=== PATIENT | male | born 1975 | race Caucasian/White ===

== ENCOUNTER 2022-06-04 17:48 | Observation (INO) ==
[2022-06-04] MEDS ORDERED: Naloxone 0.4 MG/ML INJ IVP PRN (20:28)
[2022-06-04] MEDS ORDERED: Acetaminophen 325 MG TABLET PO PRN (21:00)
[2022-06-04] MEDS ORDERED: Ondansetron 4 MG/2 ML VIAL IVP PRN (21:00)
[2022-06-04] MEDS ORDERED: GuaiFENesin Liq 200 MG/10 ML UDC PO PRN (22:07)
[2022-06-05] MEDS: Magic Mouthwash 10 ML UD Cup PO SCH ×4 (00:01→17:04)
[2022-06-05 01:26] LABS: Basophils % 0.1 %; Eosinophils % 0.1 %; Hematocrit 31.7 % (37.5-50.1); Hemoglobin 10.3 g/dL (12.9-16.9); Immature Granulocytes % 0.4 % (0-4); Lymphocytes # 0.8 K/mcL (0.6-4.6); Lymphocytes % 6.4 %; Mean Corpuscular HGB Conc 32.5 g/dL (31.6-35.5); Mean Corpuscular Hemoglobin 30.9 pg (28.0-33.3); Mean Corpuscular Volume 95.2 fL (83.0-100.0); Mean Platelet Volume 9.8 fL (9.4-12.4); Monocytes # 0.7 K/mcL (0.0-1.3); Monocytes % 5.5 %; Neutrophils # 10.5 K/mcL (1.6-8.9); Platelet Count 246 K/mcL (140-400); Red Blood Count 3.33 M/mcL (4.19-5.50); Red Cell Distribution Width 15.2 % (11.5-14.5); Segmented Neutrophils % 87.5 %
[2022-06-05 01:36] LABS: INR 1.1; Prothrombin Time 11.9 Seconds (9.4-12.1)
[2022-06-05 01:45] LABS: Albumin 3.5 g/dL (3.5-5.7); Albumin/Globulin Ratio 1.3 (1.1-2.2); Bilirubin,Direct 0.1 mg/dL (0.0-0.2); Bilirubin,Indirect 0.3 mg/dL (0.0-1.0); Bilirubin,Total 0.4 mg/dL (0.3-1.0); Calcium 9.1 mg/dL (8.6-10.3); Chol/HDL Ratio 3.6 (0-4.9); Globulin 2.7 g/dL (2.4-3.5); Magnesium 1.7 mg/dL (1.6-2.6); Phosphorous 3.2 mg/dL (2.7-4.5); Potassium 4.7 mEq/L (3.5-5.1); Total Protein 6.2 g/dL (6.4-8.9); Troponin I 0.03 ng/mL (< 0.04)
[2022-06-05 01:58] LABS: Thyroid Stimulating Hormone 0.406 mcIU/mL (0.340-5.600)
[2022-06-05] MEDS ORDERED: Azithromycin 500 MG in 0.9 % Sodium Chloride 250 ML IVPB SCH (09:00)
[2022-06-05] MEDS ORDERED: carvediloL 6.25 MG TABLET PO SCH ×2 (09:00→12:35)
[2022-06-05] MEDS: Aspirin 81 MG TAB.CHEW PO SCH (09:15)
[2022-06-05] MEDS: Furosemide 40 MG/4 ML VIAL IVP SCH ×2 (09:16→21:16)
[2022-06-05] MEDS: *HR* Enoxaparin 40 MG/0.4 ML SYRINGE SQ SCH (09:17)
[2022-06-05 10:16] LABS: Bilirubin,Urine Negative (Negative); Blood,Urine Negative (Negative); Clarity,Urine Clear (Clear); Color,Urine Light-Yellow (Yellow); Glucose,Urine (UA) Normal (Normal); Ketones,Urine Negative (Negative); Leukocyte Esterase,Urine Negative (Negative); Nitrite,Urine Negative (Negative); PH,Urine 7.5 pH Units (5.0-8.0); Protein,Urine Trace mg/dL (Neg-Trace); Specific Gravity,Urine 1.018 (1.010-1.025); Urobilinogen,Urine Normal (Normal)
[2022-06-05 10:24] LABS: ABG Base Excess 2 mEq/L (-2 to 3); ABG HCO3 25 mEq/L (21-27); ABG Oxygen Saturation 93 % (95-98); ABG PCO2 35 mmHg (35-45); ABG PH 7.47 pH Units (7.32-7.45); ABG PO2 63 mmHg (85-104); ABG TCO2 26 mEq/L (20-26)
[2022-06-05] MEDS: ALPRAZolam 0.5 MG TABLET PO PRN (10:30)
[2022-06-05] MEDS ORDERED: carvediloL 6.25 MG TABLET PO ONE (12:37)
[2022-06-05] MEDS ORDERED: Magnesium Sulfate 1 GM/102 ML PIGGYBACK IVPB ONE (13:22)
[2022-06-05 15:46] LABS: Lactate Dehydrogenase 224 Units/L (140-271); Total Protein 6.6 g/dL (6.4-8.9)
[2022-06-05] MEDS ORDERED: *HR* HYDROcodone/Acet 5/325 mg TABLET PO PRN (16:23)
[2022-06-05] MEDS ORDERED: *HR* OxyCODONE Immed Rel 5 MG TABLET PO PRN (16:23)
[2022-06-05] MEDS: carvediloL 6.25 MG TABLET PO SCH (17:04)
[2022-06-06 02:18] LABS: Basophils % 0.3 %; Eosinophils # 0.1 K/mcL (0.0-0.6); Eosinophils % 0.8 %; Hematocrit 35.1 % (37.5-50.1); Hemoglobin 10.9 g/dL (12.9-16.9); Immature Granulocytes % 0.6 % (0-4); Lymphocytes # 2.6 K/mcL (0.6-4.6); Lymphocytes % 21.6 %; Mean Corpuscular HGB Conc 31.1 g/dL (31.6-35.5); Mean Corpuscular Volume 96.7 fL (83.0-100.0); Mean Platelet Volume 9.8 fL (9.4-12.4); Monocytes % 8.4 %; Neutrophils # 8.3 K/mcL (1.6-8.9); Platelet Count 274 K/mcL (140-400); Red Blood Count 3.63 M/mcL (4.19-5.50); Red Cell Distribution Width 15.2 % (11.5-14.5); Segmented Neutrophils % 68.3 %; White Blood Count 12.1 K/mcL (4.3-11.1)
[2022-06-06 02:25] LABS: VBG HCO3 26 mEq/L (21-27); VBG PCO2 45 mmHg (41-51); VBG PH 7.37 pH Units (7.32-7.42); VBG PO2 113 mmHg (25-50)
[2022-06-06 02:38] LABS: Calcium 9.5 mg/dL (8.6-10.3); Magnesium 1.7 mg/dL (1.6-2.6); Potassium 4.1 mEq/L (3.5-5.1)
[2022-06-06] MEDS: ALPRAZolam 0.5 MG TABLET PO PRN (05:29)
[2022-06-06] MEDS: carvediloL 6.25 MG TABLET PO SCH (08:43)
[2022-06-06] MEDS: Aspirin 81 MG TAB.CHEW PO SCH (08:43)
[2022-06-06] MEDS: *HR* Enoxaparin 40 MG/0.4 ML SYRINGE SQ SCH (08:45)
[2022-06-06] MEDS ORDERED: Azithromycin 250 MG TABLET PO SCH (09:00)
[2022-06-06] MEDS ORDERED: Loratadine 10 MG TABLET PO SCH (09:00)
[2022-06-06 10:00] VITALS: BP 155/82
[2022-06-06] MEDS: Furosemide 40 MG/4 ML VIAL IVP SCH (10:00)
[2022-06-06] MEDS: Magic Mouthwash 10 ML UD Cup PO SCH ×2 (10:01→12:13)
[2022-06-06 10:37] VITALS: PULSE 102; TEMP 98; O2SAT 96
== END 2022-06-06 17:50 | disposition home or self-care (01) ==
LOC: 2NENU → SUATTDRO 20:28
PROVIDERS: ADMIT Internal Medicine; ATTEND Internal Medicine